=== PATIENT | male | born 1950 | race Caucasian/White ===

== ENCOUNTER 2017-08-31 12:49 | Emergency (ER) | payer MEDICARE ==
[~2017-08-31] VITALS: Ht 185.4 cm; Wt 78.5 kg
[2017-08-31] MEDS ORDERED: Ketorolac 30mg Inj IV ONE (13:00)
[2017-08-31] MEDS ORDERED: Morphine Sulfate 4mg/ml Inj IVP ONE (13:00)
[2017-08-31 13:16] VITALS: BP 122/88
--- NOTE | 2017-08-31 14:04 | Emergency Room Report ---
History of Present Illness General Chief Complaint: Multiple Trauma/Fall Source: Patient, Medical Record Present Illness HPI Patient presents emergency department today complaining of fall. Patient states that he had a mechanical fall off a roof yesterday onto his lower back. He complains severe lower back pain since then and has had difficulty moving because of the pain. However he denies any numbness or tingling in his feet or his perineum. He denies any other injuries. Symptoms noted to be severe.No other modifying factors. No other associated signs and symptoms. No other complaints were noted. Allergies: Coded Allergies: No Known Allergies (Unverified , 08/31/17) Patient History Past Medical History: other - High choles Past Surgical History: none Pertinent Family History: none Social History: Denies: smoking, alcohol use, drug use Reviewed Nursing Documentation: PMH: Agreed; PSxH: Agreed Nursing Documentation-PMH Past Medical History: No History, Except For Hx Hypertension: Yes - high cholesterol Review of Systems All Other Systems: negative except mentioned in HPI Physical Exam Vital Signs Date Time Temp Pulse Resp B/P (MAP) Pulse Ox O2 Delivery O2 Flow Rate FiO2 08/31/17 12:39 98.3 88 16 122/88 98 Room Air 98.2 Sp02 EP Interpretation: reviewed, normal General Appearance: normal inspection, well appearing, no apparent distress, alert Head: atraumatic Eyes: bilateral eye normal inspection ENT: normal ENT inspection, hearing grossly normal, normal voice Neck: normal inspection, full range of motion, supple, no bony tend Respiratory: normal inspection, lungs clear, normal breath sounds, no respiratory distress, no retraction, no wheezing Cardiovascular #1: regular rate, rhythm, no edema Gastrointestinal: normal inspection, normal bowel sounds, non tender, soft, no guarding, no hernia Genitourinary: no CVA tenderness Musculoskeletal: tender - Lower back Neurologic: normal inspection, alert, responsive, speech normal Psychiatric: normal inspection, judgement/insight normal, mood/affect normal Skin: normal inspection, normal color, no rash Medical Decision Making Diagnostic Impression: Primary Impression: Multiple injuries due to trauma Additional Impression: Fall ER Course Patient presents emergency department today complaining lower back pain. Differential considerations include fracture dislocation versus strain. Given patient's presentation I felt x-rays are indicated. X-rays show evidence of compression fractures lower back. Because of this I felt the patient require CT scan to rule out any injury to the spinal canal.I will sign case out to Dr. Arnaldo Veras for final disposition. Other X-Ray Diagnostic Results Other X-Ray Diagnostic Results #1: X-Ray ordered: Pelvis # of Views/Limited Vs Complete: 1 View Indication: Pain EP Interpretation: Yes Interpretation: no dislocation, no fractures, nonspecific bowel gas Impression: No acute disease Electronically Signed by: Electronically signed by Bossman Pichardo MD Other X-Ray Diagnostic Results #2: X-Ray ordered: Lumbar x-ray # of Views/Limited Vs Complete: 3 View Indication: Pain EP Interpretation: Yes Interpretation: no dislocation, nonspecific bowel gas, other - Compression L1, L4. Impression: Other - Compression fractures of L1 and L4 Electronically Signed by: Electronically signed by Bossman Pichardo MD Last Vital Signs Date Time Temp Pulse Resp B/P (MAP) Pulse Ox O2 Delivery O2 Flow Rate FiO2 08/31/17 13:16 208.9 90 16 122/88 98 Room Air 208.9 Status: improved Referrals: [facility] (PCP) Bossman Pichardo MD Aug 31, 2017 14:04
[2017-08-31 14:35] LABS: HEMATOCRIT 38.7 % (42.0-52.0); HEMOGLOBIN 12.8 G/DL (14.2-18.0); MEAN CORPUSCULAR VOLUME 92 FL (80-99); PLATELET COUNT 189 K/UL (150-450); RED BLOOD COUNT 4.19 M/UL (4.70-6.10); RED CELL DISTRIBUTION WIDTH 10.8 % (11.6-14.8); WHITE BLOOD COUNT 8.6 K/UL (4.8-10.8)
[2017-08-31 14:49] LABS: INR 0.9 (0.9-1.1)
[2017-08-31 14:50] LABS: ANION GAP 4 mmol/L (5-15); BLOOD UREA NITROGEN 21 mg/dL (7-18); CALCIUM 8.9 MG/DL (8.5-10.1); CARBON DIOXIDE 27 MMOL/L (21-32); CHLORIDE 106 MMOL/L (98-107); CREATININE 1.2 MG/DL (0.55-1.30); POTASSIUM 4.3 MMOL/L (3.5-5.1); SODIUM 137 MMOL/L (136-145)
[2017-08-31 14:55] LABS: ALANINE AMINOTRANSFERASE 30 U/L (12-78); ALBUMIN 3.5 G/DL (3.4-5.0); ALKALINE PHOSPHATASE 66 U/L (46-116); ASPARTATE AMINO TRANSFERASE 23 U/L (15-37); BILIRUBIN,TOTAL 0.4 MG/DL (0.2-1.0)
--- NOTE | 2017-08-31 15:11 | Emergency Room Report ---
Physical Exam Please see the note from Dr. Pichardo with the initial evaluation Patient fell about 12 feet. He complains about pain in his back. There is no weakness or numbness at this time. There was no loss of consciousness. The patient is still complaining about severe pain at this time. He denies any weakness, saddle numbness numbness, extremity numbness. The pain is worse when he moves about. He rates it at 45/10. He's had received Toradol and morphine 4. Vital Signs Date Time Temp Pulse Resp B/P (MAP) Pulse Ox O2 Delivery O2 Flow Rate FiO2 08/31/17 12:39 98.3 88 16 122/88 98 Room Air 98.2 Sp02 EP Interpretation: reviewed, normal General Appearance: well appearing, no apparent distress, GCS 15 Head: normocephalic Eyes: bilateral eye normal inspection, bilateral eye PERRL ENT: dry mucus membranes Neck: supple Respiratory: lungs clear, normal breath sounds Cardiovascular #1: regular rate, rhythm Cardiovascular #2: 2+ radial (R) Gastrointestinal: normal inspection, normal bowel sounds, non tender, no mass, non-distended Musculoskeletal: gait/station normal, normal range of motion, other - Point tenderness both L1 and L4. Neurologic: alert, oriented x3, motor strength/tone normal, DTRs symmetric, sensory intact Psychiatric: mood/affect normal Skin: normal inspection, warm/dry Medical Decision Making Diagnostic Impression: Primary Impression: Compression fracture Additional Impressions: Multiple injuries due to trauma Fall Qualified Codes: W19.XXXA - Unspecified fall, initial encounter ER Course Patient presents after having significant fall. Please see the above note from Dr. Pichardo. CT lumbar spine reveals L1 with 60% height loss and 8 mm bony retropulsion causing moderate to severe spinal canal stenosis. Also spinal compression deformity of L4 with 20% loss of height 5 mm bony retropulsion. He also degenerative changes. The patient still has significant pain. I we'll be chasing this pain and controlling it with IV opiates. In addition to that he appears slightly dehydrated with a dry mouth but might be related to medication. IV hydration will be started. We are sending CT results to [facility] to get their input. He they will accept the patient there in transfer or we will admit the patient here for pain control. Discussed with Dr. Patricia, trauma surgeon at [facility]. He except the patient. The patient is given fentanyl 50 mg and still has no relief. This was repeated one time. Slightly better after fentanyl. Stable for transfer to [facility]. Laboratory Tests Test 08/31/17 14:18 White Blood Count 8.6 K/UL (4.8-10.8) Red Blood Count 4.19 M/UL (4.70-6.10) L Hemoglobin 12.8 G/DL (14.2-18.0) L Hematocrit 38.7 % (42.0-52.0) L Mean Corpuscular Volume 92 FL (80-99) Mean Corpuscular Hemoglobin 30.6 PG (27.0-31.0) Mean Corpuscular Hemoglobin Concent 33.1 G/DL (32.0-36.0) Red Cell Distribution Width 10.8 % (11.6-14.8) L Platelet Count 189 K/UL (150-450) Mean Platelet Volume 6.5 FL (6.5-10.1) Neutrophils (%) (Auto) % (45.0-75.0) Lymphocytes (%) (Auto) % (20.0-45.0) Monocytes (%) (Auto) % (1.0-10.0) Eosinophils (%) (Auto) % (0.0-3.0) Basophils (%) (Auto) % (0.0-2.0) Differential Total Cells Counted 100 Neutrophils % (Manual) 91 % (45-75) H Lymphocytes % (Manual) 9 % (20-45) L Monocytes % (Manual) 0 % (1-10) L Eosinophils % (Manual) 0 % (0-3) Basophils % (Manual) 0 % (0-2) Band Neutrophils 0 % (0-8) Platelet Estimate Adequate Platelet Morphology Normal Polychromasia 1+ Prothrombin Time 10.0 SEC (9.30-11.50) Prothrombin Time INR 0.9 (0.9-1.1) PTT 27 SEC (23-33) Sodium Level 137 MMOL/L (136-145) Potassium Level 4.3 MMOL/L (3.5-5.1) Chloride Level 106 MMOL/L (98-107) Carbon Dioxide Level 27 MMOL/L (21-32) Anion Gap 4 mmol/L (5-15) L Blood Urea Nitrogen 21 mg/dL (7-18) H Creatinine 1.2 MG/DL (0.55-1.30) Estimate Glomerular Filtration Rate > 60 mL/min (>60) Glucose Level 130 MG/DL (74-106) H Calcium Level 8.9 MG/DL (8.5-10.1) Total Bilirubin 0.4 MG/DL (0.2-1.0) Aspartate Amino Transferase (AST) 23 U/L (15-37) Alanine Aminotransferase (ALT) 30 U/L (12-78) Alkaline Phosphatase 66 U/L (46-116) Total Protein 7.1 G/DL (6.4-8.2) Albumin 3.5 G/DL (3.4-5.0) Globulin 3.6 g/dL Albumin/Globulin Ratio 1.0 (1.0-2.7) CT/MRI/US Diagnostic Results CT/MRI/US Diagnostic Results #1: Imaging Test Ordered: Lumbar spine Impression L1 and L4 fractures with retropulsion of the vertebral body into the spinal canal CT/MRI/US Diagnostic Results #2: Imaging Test Ordered: T spine Impression Anterior compression deformities at T7 and T10 as suggesting chronic. Last Vital Signs Date Time Temp Pulse Resp B/P (MAP) Pulse Ox O2 Delivery O2 Flow Rate FiO2 08/31/17 17:30 98.6 68 18 118/72 98 Room Air 98.6 Status: improved Disposition: XFER SHT-TRM HOSP Condition: Serious Referrals: [facility] (PCP) Arnaldo Veras M.D. Aug 31, 2017 15:11
[2017-08-31] MEDS ORDERED: fentaNYL 100 mcg/2 mL IV ONE ×2 (15:15→15:45)
[2017-08-31 15:18] VITALS: BP 124/76
[2017-08-31 17:27] VITALS: BP 118/72
[2017-08-31 17:30] VITALS: BP 118/72
--- NOTE | 2017-09-01 08:26 | Diagnostic Imaging Report ---
Indication: Pain status post injury Technique: CT thoracic spine was performed utilizing automated exposure control without intravenous contrast material. Axial, sagittal and coronal images were generated. CT dose: Total DLP 1045 mGycm; CTDI vol 0.3, 0.3, 23.2 mGy Comparison: None Findings: The bones are diffusely demineralized. There is mild scoliosis. There are mild anterior compression deformities (less than 20% height loss) of the T7 and T10 vertebral bodies. These are likely chronic. A Schmorl's node is noted along the superior endplate of T5. There is no indeterminate anterior compression deformity of the L1 vertebral body resulting in approximately 60% loss of height with retropulsion resulting in moderate to severe canal stenosis at this level. Please note that the cord and discs are better evaluated on MRI, which can be obtained as clinically indicated for further evaluation. There is multilevel degenerative change of the thoracic spine with disc space loss and endplate osteophyte formation. And atelectasis is noted in the partially visualized lungs. Thoracic aorta appears normal in caliber. There is a punctate nonobstructing left renal stone. There is a 1.9 cm simple appearing cyst in the right kidney. IMPRESSION: * Diffuse bone demineralization/osteopenia with age indeterminate compression deformities of the T7, T10 and L1 vertebral bodies as above. * Overall mild multilevel degenerative change of the thoracic spine. * Punctate nonobstructive left renal stone. * 1.9 cm simple appearing cyst in the right kidney. This corresponds with the [facility]rad preliminary report. The CT scanner at [facility] is accredited by the [employer] and the scans are performed using protocols designed to limit radiation exposure to as low as reasonably achievable to attain images of sufficient resolution adequate for diagnostic evaluation.
--- NOTE | 2017-09-01 08:37 | Diagnostic Imaging Report ---
Indication: Pain status post injury Technique: CT lumbar spine was performed utilizing automated exposure control without intravenous contrast material. Axial, sagittal and coronal images were generated. CT dose: Total DLP 453.58 mGycm; CTDI vol 13.18 mGy Comparison: None Findings: The bones are diffusely demineralized. There is an age-indeterminate compression fracture of the L1 vertebral body with approximately 60% height loss and associated approximately 8mm bony retropulsion resulting in moderate to severe spinal stenosis stenosis at this level. Additional age indeterminate compression fracture of the L4 vertebral body with approximately 20-30% height loss and approximately 5 mm of bony retropulsion of the superior endplate resulting in mild to moderate stenosis at this level. Please note that the cord and discs are better evaluated on MRI, which can be obtained as clinically indicated for further evaluation. Multilevel degenerative changes of the lumbar spine most pronounced at L5-S1, with areas severe disc deficiency with vacuum disc phenomenon and marginal osteophyte formation and facet arthropathy. The abdominal aorta is normal in caliber but tortuous. 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 Sigmoid diverticulosis is partially visualized. Mild wall thickening may suggest a low-grade diverticulitis. No adjacent free air or fluid collections. IMPRESSION: * Diffuse bone demineralization/osteopenia. * Compression fractures of the L1 and L4 vertebral bodies as detailed above with associated retropulsion resulting in moderate to severe and mild to moderate central canal stenosis at those levels respectively. * Degenerative change of the lumbar spine most pronounced at L5-S1. * Partially visualized sigmoid diverticulosis. Questionable mild wall thickening may suggest a low-grade diverticulitis. Correlate clinically. This corresponds with the [facility]rad preliminary report. 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 The CT scanner at [facility] is accredited by the [employer] and the scans are performed using protocols designed to limit radiation exposure to as low as reasonably achievable to attain images of sufficient resolution adequate for diagnostic evaluation.
--- NOTE | 2017-09-01 08:40 | Diagnostic Imaging Report ---
Indication: Pain status post fall Technique: XRAY [employer] Comparison: None Findings: Bones are diffusely demineralized. Age-indeterminate compression fracture of the L1 vertebral body with approximately 60% height loss and a degree of bony retropulsion. Age indeterminate more mild compression fracture of the L4 vertebral body. There is multilevel degenerative change of the lumbar spine most pronounced at 5 S1. Bowel gas pattern is nonobstructive. Impression: Age indeterminate compression fractures of the L1 and L4 vertebral bodies as above.
--- NOTE | 2017-09-01 08:43 | Diagnostic Imaging Report ---
Indication: Pain status post injury Technique: XRAY Pelvis 1v Comparison: None Findings: The bones are diffusely demineralized. No definite/displaced pelvic fractures identified. Hip joints, sacroiliac joints and symphysis pubis are maintained. Degenerative change of the lower lumbar spine is partially visualized. Imaged bowel gas pattern is nonobstructive. No radiopaque foreign body seen. Impression: No definite/displaced pelvic fracture identified. Please note that some fractures can be radiographically occult. Further imaging with CT or MRI can be obtained as clinically indicated.
== END 2017-08-31 17:32 | disposition short-term general hospital (02) ==
LOC: EDBD 12:49 → EMR 13:55
DX: S32.019A Unspecified fracture of first lumbar vertebra, initial encounter for closed fracture (principal); S32.049A Unspecified fracture of fourth lumbar vertebra, initial encounter for closed fracture; W17.89XA Other fall from one level to another, initial encounter; Y92.9 Unspecified place or not applicable; I10 Essential (primary) hypertension; E78.00 Pure hypercholesterolemia, unspecified
CPT/HCPCS: 36415; 72020; 72128; 72131; 72170; 80053; 85007; 85025; 85610; 85730; 96361; 96374; 96375; 99284; J1885; J2270; J3010; 96360